=== PATIENT | male | born 1995 | race Hispanic/Latino ===

== ENCOUNTER 2018-07-09 22:50 | Emergency (ER) | payer OTHER ==
[~2018-07-09] VITALS: Ht 182.9 cm; Wt 79.5 kg
[2018-07-10] MEDS ORDERED: ALBUTEROL 90 MCG/ACT 8GM HFA INHALER INH ONE (05:30)
[2018-07-10 06:06] VITALS: BP 126/60
== END 2018-07-10 06:07 | disposition home or self-care (01) ==
LOC: M ED 22:50
DX: J45.909 Unspecified asthma, uncomplicated (principal)

== ENCOUNTER 2018-07-12 21:09 | Emergency (ER) | payer OTHER ==
[~2018-07-12] VITALS: Ht 182.9 cm; Wt 81.8 kg
[2018-07-12] MEDS ORDERED: VENTAER INH (22:10)
[2018-07-12] MEDS ORDERED: FAMOTIDINE 20 MG TAB PO ONE (22:45)
[2018-07-12] MEDS ORDERED: predniSONE 20 MG TAB PO ONE (22:45)
[2018-07-12] MEDS ORDERED: ALBUTEROL SULFATE 2.5 MG/0.5 ML INH NEB SOLN NEB ONE (22:45)
[2018-07-12] MEDS ORDERED: diphenhydrAMINE 50 MG CAP PO ONE (22:45)
[2018-07-12] MEDS ORDERED: PRED20TA PO (23:35)
[2018-07-12 23:48] VITALS: BP 130/72
--- NOTE | 2018-07-13 02:53 | REP ---
Clinical: Shortness of breath . Comparison: None . Technique: PA and lateral. Findings: The mediastinum and cardiac silhouette are normal. The lung rosen are clear and without acute consolidation, effusion, or pneumothorax. The skeletal structures are intact and normal. Impression: 1. No acute cardiopulmonary process. Electronically Signed by Cl Red MD 07/13/2018 02:44 A
== END 2018-07-12 23:49 | disposition home or self-care (01) ==
LOC: M ED 21:09
DX: R06.02 Shortness of breath (principal); T78.40XA Allergy, unspecified, initial encounter; X58.XXXA Exposure to other specified factors, initial encounter; Y92.89 Other specified places as the place of occurrence of the external cause

== ENCOUNTER → 2020-05-08 | Outpatient (CLI) | payer OTHER ==
[~2020-05-08] MED LIST: PRED20TA PO; VENTAER INH
== END ==
LOC: M LABSMTC 14:16
PROVIDERS: ATTEND Family Medicine
DX: Z20.822 Contact with and (suspected) exposure to COVID-19 (principal)

== ENCOUNTER 2020-09-14 22:00 | Emergency (ER) | payer OTHER ==
[~2020-09-14] VITALS: Ht 177.8 cm; Wt 91.3 kg
[2020-09-14] MEDS ORDERED: IBUP-1114 PO (22:11)
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
[2020-09-15 00:07] VITALS: BP 129/68
== END 2020-09-15 00:09 | disposition home or self-care (01) ==
LOC: M ED 22:00
DX: S06.0X0A Concussion without loss of consciousness, initial encounter (principal); Y04.2XXA Assault by strike against or bumped into by another person, initial encounter; Y92.9 Unspecified place or not applicable; Y93.9 Activity, unspecified; Y99.9 Unspecified external cause status